=== PATIENT | female | born 1995 | race Caucasian/White ===

== ENCOUNTER 2024-01-21 20:55 | Emergency (ER) | payer OTHER ==
[2024-01-21 21:12] VITALS: BP 120/80; PULSE 80; RESP 15; TEMP 98.8
== END 2024-01-21 21:47 | disposition home or self-care (01) ==
LOC: FER 20:55
DX: S92.501A Displaced unspecified fracture of right lesser toe(s), initial encounter for closed fracture (principal); W22.8XXA Striking against or struck by other objects, initial encounter
CPT/HCPCS: 73660-TC-FY; 99283-25